=== PATIENT | male | born 1970 | race Asian ===

== ENCOUNTER 2018-03-08 15:44 | Emergency (ER) | payer OTHER ==
[~2018-03-08] VITALS: Ht 180.3 cm; Wt 90.7 kg
[2018-03-08 16:21] LABS: PLATELET COUNT 229 K/uL (142-355)
[2018-03-08 16:27] LABS: POTASSIUM 3.6 mmol/L (3.6-5.2)
[2018-03-08 21:11] VITALS: BP 129/103; TEMP 99.9
== END 2018-03-08 21:17 | disposition home or self-care (01) ==
LOC: ED 15:44
DX: S40.012A Contusion of left shoulder, initial encounter (principal); M54.2 Cervicalgia; V29.3XXA Motorcycle rider (driver) (passenger) injured in unspecified nontraffic accident, initial encounter
CPT/HCPCS: 36415; 80053; 81000; 85027; 96365; 96375; 96376; 99284; J2270

== ENCOUNTER 2021-08-10 10:15 | Outpatient (CLI) | payer OTHER ==
[2021-08-10 10:47] LABS: POTASSIUM 4.2 mmol/L (3.6-5.2)
== END 2021-08-10 19:53 | disposition home or self-care (01) ==
LOC: LABW 10:15
PROVIDERS: ATTEND Registered Nurse
DX: E87.5 Hyperkalemia (principal)
CPT/HCPCS: 36415; 80053

== ENCOUNTER 2022-09-04 11:13 | Outpatient (CLI) | payer OTHER | END 2022-09-04 19:11 | disposition home or self-care (01) | LOC: RAD 11:13 | PROVIDERS: ATTEND Nurse Practitioner Family | DX: N63.32 Unspecified lump in axillary tail of the left breast (principal) ==

== ENCOUNTER 2022-10-03 11:17 | Outpatient (CLI) | payer OTHER | END 2022-10-03 19:31 | disposition home or self-care (01) | LOC: US 11:17 | PROVIDERS: ATTEND Registered Nurse | DX: N63.32 Unspecified lump in axillary tail of the left breast (principal) ==